=== PATIENT | male | born 1930 | race Caucasian/White ===

== ENCOUNTER 2017-08-31 06:38 | Inpatient (IN) | payer MEDICARE ==
[2017-08-30 12:02] LABS: BASOPHILS % 0.5 % (0.0-1.0); EOSINOPHILS # (AUTO) 0.2 (0.0-0.4); EOSINOPHILS % 2.4 % (0.0-6.0); HEMOGLOBIN 14.4 g/dL (14.0-18.0); LYMPHOCYTES # (AUTO) 1.4 (1.0-3.2); LYMPHOCYTES % 16.2 % (18.0-39.1); MEAN CORPUSCULAR HEMOGLOBIN 32.2 pg (28-32); MEAN CORPUSCULAR HGB CONC 34.3 g/dL (31-35); MONOCYTES % 11.6 % (4.4-11.3); PLATELET COUNT 190 x10e3/uL (140-360); RED BLOOD COUNT 4.47 x10e6/uL (4.3-5.7); RED CELL DISTRIBUTION WIDTH 13.6 % (11.7-14.4)
[2017-08-30 12:16] LABS: ANION GAP 12.8 mmol/L (8-16); BLOOD UREA NITROGEN 14 mg/dL (7-26); BUN/CREATININE RATIO 20 (6-25); CALCIUM 9.8 mg/dL (8.4-10.2); CARBON DIOXIDE 25 mmol/L (22-29); CHLORIDE 108 mmol/L (98-107); CREATININE, SERUM 0.69 mg/dL (0.72-1.25); EST GLOMERULAR FILTRATION RATE > 60 ML/MIN (60-); GLUCOSE 86 mg/dL (74-118); POTASSIUM 4.8 mmol/L (3.5-5.1); SODIUM 141 mmol/L (136-145)
--- NOTE | 2017-08-30 12:29 | Diagnostic Imaging Report ---
PROCEDURE: Frontal and lateral views of the chest. COMPARISON: None. INDICATIONS: PRE-OP. DENIES CHEST COMPLAINTS FINDINGS: Lines/tubes: None. Lungs: The lungs are well inflated and clear. There is no evidence of pneumonia or pulmonary edema. Pleura: There is no pleural effusion or pneumothorax. Heart and mediastinum: The heart and the mediastinum are normal. Aorta is calcified and tortuous. Bones: No acute bony abnormality. IMPRESSION: 1. No acute cardiopulmonary disease. Dictated by: Raj Sharma M.D. on 08/30/2017 at 12:32 Electronically approved by: Raj Sharma M.D. on 08/30/2017 at 12:32
[~2017-08-31] VITALS: Ht 180.3 cm; Wt 88.9 kg
[~2017-08-31 06:38] MED LIST: ASPIRIN81 MG; BELLADONNA/OPIUM 60 MG SUPP PR ONE; CEFTRIAXONE SOD 1 GM VIAL ONE; DIOVAN160 MG PO; FISH OIL 1,0001 EAC2; GENTAMICIN 80MG/NS 100 ML 100 ML IV ONE; HYDRALAZINE HCL10 MG PO; IOPAMIDOL 610MG/1ML 300 MG/ML VIAL IV ONE; LEVOTHYROXINE50 MCG PO
--- OUTSIDE RECORDS SUMMARY | 2017-08-31 06:40 | XMS REPORT | Summary of Care ---
Author Author NICK ARMSTRONG M.D. Organization Unknown Address Unknown Phone Unavailable Care Team Providers Care Canvas Goods Maker Name Role Phone NICK ARMSTRONG M.D. Unavailable Unavailable TREY KNAPP, HONORIO Cordova Unavailable Unavailable Unavailable Unavailable Functional Status Name Dates Details Functional status health issues are not documented Status: Name Dates Details Cognitive status health issues are not documented Status: Problems Name Dates Details Aortic regurgitation (424.1, I35.1) Status: Active Essential (primary) hypertension (401.9, I10) Status: Active Hyperlipidemia (272.4, E78.5) Status: Active Mitral regurgitation (424.0, I34.0) Status: Active Murmur (785.2, R01.1) Status: Active Paroxysmal atrial tachycardia (427.0, I47.1) Status: Active 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 Active Diovan 320 MG Oral Tablet TAKE 1 TABLET DAILY. * Refills: 0 Active Pravastatin Sodium 20 MG Oral Tablet TAKE 1 TABLET BY MOUTH DAILY * Quantity: 90 Refills: 0 NICK ARMSTRONG M.D. * Start : 18-Feb-2016 Active Doxycycline Hyclate 20 MG Oral Tablet TAKE 1 TABLET TWICE DAILY. * Refills: 0 Active Metoprolol Succinate ER 25 MG Oral Tablet Extended Release 24 Hour TAKE ONE TABLET BY MOUTH EVERY DAY AT BEDTIME * Quantity: 30 Refills: 0 * Start : 23-Mar-2013 Active Aspirin 81 MG TABS TAKE 1 TABLET DAILY. * Refills: 0 * Start : 03-Jul-2014 Active HydrALAZINE HCl - 25 MG Oral Tablet TAKE 1 TABLET 3 TIMES DAILY. take only if B/P<150 * Refills: 0 * Start : 24-Jun-2015 Active Allergies and Adverse Reactions Name Dates Details No Known Drug Allergies (Allergy) Status: Active Past Medical History Name Dates Details History of essential hypertension (V12.59, Z86.79) Status: Resolved History of hyperlipidemia (V12.29, Z86.39) Status: Resolved History of Hyperthyroidism (242.90, E05.90) Status: Resolved Procedures Procedure Dates Details History of Laminectomy Lumbar Completed History of Knee Replacement Completed Immunization Name Dates Details Immunizations not documented Family History Name Dates Details Family history of Parkinson Disease Comments: Family History Status: Active Family history of Cancer Comments: Family History Status: Active Social History Name Dates Details - Status: Name Dates Details Former smoker Vital Signs Date Test Result Details [id number] BP Systolic 150 mm[Hg] Status: Comments: Location: LUE; Position: Sitting BP Diastolic 80 mm[Hg] Status: Comments: Location: LUE; Position: Sitting Height 71 in Status: Weight 185.4 lb Status: Body Mass Index Calculated 25.86 kg/m2 Status: Body Surface Area Calculated 2.04 m2 Status: Heart Rate 61 /min Status: Comments: Location: L Radial; Quality: Normal Results Date Description Value Details Results not documented Plan of Care Name Dates Details Planned Observations Planned Goals not documented Planned Encounters Appointment; NICK ARMSTRONG M.D. On: 02-Sep-2017 15:10 Instructions Name Dates Details Instructions not documented Encounters Appointment; NICK ARMSTRONG M.D. Encounter Diagnosis: Problem not documented On: 18-Nov-2015 9:15 Appointment; NICK ARMSTRONG M.D. Encounter Diagnosis: Problem not documented On: 14-Jul-2017 14:30 Appointment; SE, ECHO Encounter Diagnosis: Problem not documented On: 19-Jul-2017 9:30 Appointment; SE, NUCLEAR Encounter Diagnosis: Problem not documented On: 20-Jul-2017 8:30
--- OUTSIDE RECORDS SUMMARY | 2017-08-31 06:40 | XMS REPORT ---
Author Author [facility] Address Unknown Phone Unavailable Care Team Providers Care Contract Negotiation Manager Name Role Phone MICHA HUANG Unavailable Unavailable Problems This patient has no known problems. Allergies, Adverse Reactions, Alerts This patient has no known allergies or adverse reactions. Medications This patient has no known medications. Results Test Description Test Time Test Comments Text Results Atomic Results Result Comments CHEST 2 VIEWS [place] [address] Patient Name: ILYA LEÓN MR #: [id number] : 1930 Age/Sex: 87/M Req # : [id number] Adm Physician: Ordered by: CHARLETTE PUGH MD Report # : [id number] Location: OR Room/Bed: Procedure: [id number] DX/CHEST 2 VIEWS Exam Date: 08/30/17 Exam Time : 1206 REPORT STATUS: Signed PROCEDURE: Frontal and lateral views of the chest. COMPARISON: None. INDICATIONS: PRE-OP. DENIES CHEST COMPLAINTS FINDINGS: Lines/tubes: None. Lungs: The lungs are well inflated and clear. There is no evidence of pneumonia or pulmonary edema. Pleura: There is no pleural effusion or pneumothorax. Heart and mediastinum: The heart and the mediastinum are normal. Aorta is calcified and tortuous. Bones: No acute bony abnormality. IMPRESSION: 1. No acute cardiopulmonary disease. Dictated by: Raj Luke M.D. on 08/30/2017 at 12:32 Electronically approved by: Raj Luke M.D. on 08/30/2017 at 12:32 Dictated By: RAJ LUKE MD 1232 Transcribed By: YANG on 08/30/17 1232 COPY TO: CHARLETTE PUGH MD CT ABDOMEN/PELVIS WOW [place] [address] Patient Name: ILYA LEÓN MR #: [id number] : 1930 Age/Sex: 86/M Req #: [id number] Adm Physician: Ordered by: MICHA HUANG MD Report #: [id number] Location: CT Room/Bed: Procedure: [id number] CT/CT ABDOMEN/PELVIS WOW Exam Date: 01/25/17 Exam Time: 1750 REPORT STATUS: Signed PROCEDURE: CT ABDOMEN T PELVIS W/WO CONTRAST TECHNIQUE: The abdomen and pelvis were scanned utilizing a multidetector helical scanner from the diaphragm to the lesser trochanter before and after the IV administration of 100 cc of Isovue 370 and the oral administration of water. Coronal and sagittal multiplanar reformations were obtained. COMPARISON: None. INDICATIONS : Hematuria. FINDINGS: LOWER THORAX: Normal. HEPATOBILIARY: No focal hepatic lesions. No biliary ductal dilatation. Normal gallbladder. SPLEEN: No splenomegaly. PANCREAS: No focal masses or ductal dilatation. ADRENALS: No adrenal nodules. KIDNEYS/URETERS: No filling defect is visualized. No hydroureter. No obstructing calculi. No solid mass. No perinephric soft tissue inflammatory changes. PELVIC ORGANS/BLADDER: Normal urinary bladder. Enlarged lobular prostate. PERITONEUM / RETROPERITONEUM: No free air or fluid. LYMPH NODES: No lymphadenopathy. VESSELS: Aortoiliac atherosclerotic calcifications. GI TRACT: No distention or wall thickening. Normal appendix. Moderate amount of retained feces limits intraluminal evaluation of the colon. No air-fluid levels. BONES AND SOFT TISSUES: Degenerative changes of the lumbar spine. IMPRESSION: No acute abnormality of the abdomen and pelvis. Dictated by : Kesha Vasquez M.D. on 01/25/2017 at 18:50 Electronically approved by: eKsha Vasquez M.D. on 01/25/2017 at 18:50 Dictated By: KESHA VASQUEZ MD 49 Transcribed By: YANG on 01/25/171849 COPY TO: MICHA HUANG MD
[2017-08-31] MEDS ORDERED: IOPAMIDOL 610MG/1ML 300 MG/ML VIAL IV ONE (07:47)
[2017-08-31] MEDS ORDERED: FENTANYL CITRATE/PF 100MCG/2 ML INJ ONE ×2 (13:33→18:26)
[2017-08-31 15:23] VITALS: BP 142/73
[2017-08-31] MEDS ORDERED: HYDROCODONE/APAP 10MG-325MG TAB PO PRN (16:30)
[2017-08-31 16:44] VITALS: BP 142/73
[2017-08-31] MEDS ORDERED: ACETAMINOPHEN 1000 MG/100 ML IV ONE (18:33)
[2017-08-31] MEDS ORDERED: KETOROLAC TROMETHAMINE 30 MG/ML VIAL ONE (18:33)
[2017-08-31] MEDS ORDERED: PROPOFOL IV EMULSION 10 MG/ML 20 ML VIAL ONE (18:33)
[2017-08-31] MEDS ORDERED: LIDOCAINE HCL 2% LOCAL INJ 5 ML SDV VIAL INJ ONE (18:33)
[2017-08-31] MEDS ORDERED: ONDANSETRON HCL INJ 2 MG/ML VIAL ONE (18:33)
[2017-08-31] MEDS ORDERED: EPHEDRINE SULFATE INJ 50 MG/10 ML SYR ONE (18:33)
[2017-08-31] MEDS ORDERED: DEXAMETHASONE SOD PHOS INJ 4 MG/ML VIAL ONE (18:33)
[2017-08-31] MEDS ORDERED: KETOROLAC TROMETHAMINE 30 MG/ML VIAL IV PRN (21:30)
[2017-08-31] MEDS: HYDRALAZINE HCL 25 MG TAB PO SCH (21:51)
[2017-08-31 22:00] VITALS: BP 129/72
[2017-08-31 23:10] VITALS: BP_SYST 129; BP_SYST 150; BP_DIAS 68; BP_DIAS 72
[2017-09-01] VITALS (9 sets, daily range): BP systolic 98–120; BP diastolic 52–69
[2017-09-01] MEDS: LEVOTHYROXINE SODIUM 25 MCG TABLET PO SCH (05:05)
[2017-09-01 06:12] LABS: BASOPHILS # (AUTO) 0.1 (0.0-0.1); BASOPHILS % 0.4 % (0.0-1.0); EOSINOPHILS # (AUTO) 0.1 (0.0-0.4); EOSINOPHILS % 0.9 % (0.0-6.0); HEMOGLOBIN 11.5 g/dL (14.0-18.0); LYMPHOCYTES # (AUTO) 0.8 (1.0-3.2); LYMPHOCYTES % 4.6 % (18.0-39.1); MEAN CORPUSCULAR HEMOGLOBIN 32.4 pg (28-32); MEAN CORPUSCULAR HGB CONC 33.8 g/dL (31-35); MEAN CORPUSCULAR VOLUME 95.8 fL (81-99); MONOCYTES # (AUTO) 1.4 (0.2-0.8); MONOCYTES % 8.7 % (4.4-11.3); NEUTROPHILS # (AUTO) 13.9 (2.1-6.9); NEUTROPHILS % 84.8 % (38.7-80.0); PLATELET COUNT 175 x10e3/uL (140-360); RED BLOOD COUNT 3.55 x10e6/uL (4.3-5.7); RED CELL DISTRIBUTION WIDTH 13.7 % (11.7-14.4)
[2017-09-01] MEDS ORDERED: ACETAMINOPHEN/CODEINE 300MG - 30MG TAB PO PRN (06:15)
[2017-09-01 06:36] LABS: ANION GAP 15.1 mmol/L (8-16); CALCIUM 8.9 mg/dL (8.4-10.2); CREATININE, SERUM 2.17 mg/dL (0.72-1.25); POTASSIUM 5.1 mmol/L (3.5-5.1)
[2017-09-01] MEDS: HYDRALAZINE HCL 25 MG TAB PO SCH ×2 (08:27→21:10)
[2017-09-01] MEDS ORDERED: VALSARTAN 160 MG TAB PO SCH (09:00)
[2017-09-01] MEDS ORDERED: LEVOFLOXACIN 250 MG TAB PO SCH (09:00)
[2017-09-01] MEDS ORDERED: CEFTRIAXONE SOD 1 GM/NS 50 ML 50 ML IV SCH (09:00)
[2017-09-01] MEDS ORDERED: LEVOTHYROXINE SODIUM 50 MCG TAB PO SCH (09:00)
[2017-09-01] MEDS ORDERED: HYDRALAZINE HCL 10 MG TAB PO SCH (09:00)
[2017-09-01] MEDS: SODIUM CHLORIDE 0.9% 1000ML 1,000 ML IV SCH ×2 (10:34→20:08)
[2017-09-01] MEDS: CEFTRIAXONE SOD 1 GM VIAL IV SCH (10:34)
[2017-09-02] VITALS (8 sets, daily range): BP systolic 109–143; BP diastolic 55–82
[2017-09-02] MEDS: SODIUM CHLORIDE 0.9% 1000ML 1,000 ML IV SCH ×2 (05:01→16:01)
[2017-09-02] MEDS: LEVOTHYROXINE SODIUM 25 MCG TABLET PO SCH (05:35)
[2017-09-02 07:08] LABS: BASOPHILS % 0.3 % (0.0-1.0); EOSINOPHILS # (AUTO) 0.6 (0.0-0.4); EOSINOPHILS % 5.6 % (0.0-6.0); HEMOGLOBIN 10.1 g/dL (14.0-18.0); LYMPHOCYTES # (AUTO) 0.6 (1.0-3.2); LYMPHOCYTES % 5.3 % (18.0-39.1); MEAN CORPUSCULAR HGB CONC 34.8 g/dL (31-35); MEAN CORPUSCULAR VOLUME 94.8 fL (81-99); MONOCYTES # (AUTO) 1.3 (0.2-0.8); MONOCYTES % 11.9 % (4.4-11.3); NEUTROPHILS # (AUTO) 8.2 (2.1-6.9); NEUTROPHILS % 76.4 % (38.7-80.0); PLATELET COUNT 128 x10e3/uL (140-360); RED BLOOD COUNT 3.06 x10e6/uL (4.3-5.7); RED CELL DISTRIBUTION WIDTH 13.7 % (11.7-14.4)
[2017-09-02 07:38] LABS: ANION GAP 13.9 mmol/L (8-16); CALCIUM 8.6 mg/dL (8.4-10.2); CREATININE, SERUM 2.71 mg/dL (0.72-1.25); POTASSIUM 4.9 mmol/L (3.5-5.1)
[2017-09-02] MEDS ORDERED: SODIUM CHLORIDE 0.9% 500ML 500 ML ONE (08:18)
[2017-09-02] MEDS: HYDRALAZINE HCL 25 MG TAB PO SCH ×2 (09:44→21:40)
[2017-09-02] MEDS: CEFTRIAXONE SOD 1 GM VIAL IV SCH (09:44)
--- NOTE | 2017-09-02 10:01 | Diagnostic Imaging Report ---
PROCEDURE:CT PELVIS WITHOUT AND WITH CONTRAST COMPARISON:[facility], CT, CT ABDOMEN/PELVIS WOW, 01/25/2017, 17:41. INDICATIONS:PRESLEY PLACEMENT; LOWER ABDOMINAL/PELVIC DISTENTION TECHNIQUE:Axial CT images of the pelvis were created without and following contrast material administration into the bladder. CONTRAST:Isovue-370 diluted in water instilled into the Presley catheter. DLP: 1177.94 mGy-cm FINDINGS: PELVIC NODES:None readily apparent PELVIC ORGANS:There is a Presley catheter with the balloon inflated within the prostatic urethra. The prostate is enlarged. Presley catheter does not extend into the bladder. Bladder has air and high density blood within it. The bladder is distended. The indwelling Presley catheter was removed by the Urologist. A new Presley catheter was placed and the balloon inflated. The balloon of the Presley is now present within the bladder to the right side of the bladder adjacent to the large bladder hematoma. Contrast was injected through the Presley catheter. This confirms a large bladder hematoma which has a masslike effect with contrast outlining the hematoma. Contrast does extend into the right ureter to the level of the renal pelvis. Some contrast intravasation is along the Presley within the prostatic urethra related to the recent surgery. BONES:Degenerative changes of the spine. OTHER:The appendix is normal. Atherosclerotic vascular calcification. CONCLUSION:Presley catheter and the bladder as described above. Zack Moser D.O. Dictated by: Zack Moser D.O. on 09/02/2017 at 10:03 Electronically approved by: Zack Moser D.O. on 09/02/2017 at 10:03
[2017-09-03] VITALS (8 sets, daily range): BP systolic 115–135; BP diastolic 55–91
[2017-09-03] MEDS: SODIUM CHLORIDE 0.9% 1000ML 1,000 ML IV SCH ×3 (00:27→20:15)
[2017-09-03] MEDS: LEVOTHYROXINE SODIUM 25 MCG TABLET PO SCH (05:36)
[2017-09-03 06:54] LABS: ANION GAP 11.8 mmol/L (8-16); BLOOD UREA NITROGEN 19 mg/dL (7-26); BUN/CREATININE RATIO 23 (6-25); CALCIUM 8.5 mg/dL (8.4-10.2); CARBON DIOXIDE 20 mmol/L (22-29); CHLORIDE 112 mmol/L (98-107); CREATININE, SERUM 0.84 mg/dL (0.72-1.25); EST GLOMERULAR FILTRATION RATE > 60 ML/MIN (60-); GLUCOSE 85 mg/dL (74-118); POTASSIUM 4.8 mmol/L (3.5-5.1); SODIUM 139 mmol/L (136-145)
[2017-09-03] MEDS: CEFTRIAXONE SOD 1 GM VIAL IV SCH (08:41)
[2017-09-03] MEDS: HYDRALAZINE HCL 25 MG TAB PO SCH ×2 (08:41→20:16)
[2017-09-03] MEDS ORDERED: MAGNESIUM HYDROXIDE 30 ML UDC PO PRN (09:00)
[2017-09-03] MEDS ORDERED: BISACODYL 10 MG SUPP PR PRN (09:00)
[2017-09-03] MEDS: SENNOSIDES 8.6 MG TAB PO SCH ×3 (09:00→16:34)
[2017-09-04] VITALS (8 sets, daily range): BP systolic 117–170; BP diastolic 56–72
[2017-09-04] MEDS: LEVOTHYROXINE SODIUM 25 MCG TABLET PO SCH (05:31)
[2017-09-04 06:23] LABS: BASOPHILS % 0.5 % (0.0-1.0); EOSINOPHILS # (AUTO) 0.7 (0.0-0.4); EOSINOPHILS % 9.6 % (0.0-6.0); HEMATOCRIT 26.6 % (38.2-49.6); HEMOGLOBIN 9.2 g/dL (14.0-18.0); LYMPHOCYTES # (AUTO) 0.8 (1.0-3.2); LYMPHOCYTES % 10.5 % (18.0-39.1); MEAN CORPUSCULAR HEMOGLOBIN 32.5 pg (28-32); MEAN CORPUSCULAR HGB CONC 34.6 g/dL (31-35); MONOCYTES % 12.3 % (4.4-11.3); NEUTROPHILS # (AUTO) 5.1 (2.1-6.9); NEUTROPHILS % 66.3 % (38.7-80.0); PLATELET COUNT 146 x10e3/uL (140-360); RED BLOOD COUNT 2.83 x10e6/uL (4.3-5.7); RED CELL DISTRIBUTION WIDTH 13.6 % (11.7-14.4)
[2017-09-04 06:42] LABS: ANION GAP 8.9 mmol/L (8-16); BLOOD UREA NITROGEN 10 mg/dL (7-26); BUN/CREATININE RATIO 15 (6-25); CALCIUM 8.7 mg/dL (8.4-10.2); CARBON DIOXIDE 21 mmol/L (22-29); CHLORIDE 108 mmol/L (98-107); CREATININE, SERUM 0.67 mg/dL (0.72-1.25); EST GLOMERULAR FILTRATION RATE > 60 ML/MIN (60-); GLUCOSE 98 mg/dL (74-118); POTASSIUM 3.9 mmol/L (3.5-5.1); SODIUM 134 mmol/L (136-145)
[2017-09-04] MEDS: SODIUM CHLORIDE 0.9% 1000ML 1,000 ML IV SCH (07:00)
[2017-09-04] MEDS: SENNOSIDES 8.6 MG TAB PO SCH ×2 (08:14→17:19)
[2017-09-04] MEDS: HYDRALAZINE HCL 25 MG TAB PO SCH (08:14)
[2017-09-04] MEDS: CEFTRIAXONE SOD 1 GM VIAL IV SCH (08:14)
[2017-09-04] MEDS: IRON-VITAMIN-MINERAL CAPSULE PO SCH ×2 (11:39→17:19)
[2017-09-05] VITALS: BP_SYST 148; BP_SYST 154; BP_DIAS 72; BP_DIAS 79
[2017-09-05] MEDS: HYDRALAZINE HCL 25 MG TAB PO SCH ×3 (00:54→20:34)
[2017-09-05] MEDS: LEVOTHYROXINE SODIUM 25 MCG TABLET PO SCH (05:55)
[2017-09-05 06:31] LABS: BASOPHILS % 0.5 % (0.0-1.0); EOSINOPHILS # (AUTO) 0.7 (0.0-0.4); EOSINOPHILS % 10.3 % (0.0-6.0); HEMATOCRIT 26.4 % (38.2-49.6); LYMPHOCYTES % 15.3 % (18.0-39.1); MEAN CORPUSCULAR HGB CONC 34.1 g/dL (31-35); MONOCYTES # (AUTO) 0.7 (0.2-0.8); MONOCYTES % 11.2 % (4.4-11.3); NEUTROPHILS # (AUTO) 4.1 (2.1-6.9); NEUTROPHILS % 61.9 % (38.7-80.0); PLATELET COUNT 164 x10e3/uL (140-360); RED BLOOD COUNT 2.81 x10e6/uL (4.3-5.7); RED CELL DISTRIBUTION WIDTH 13.3 % (11.7-14.4)
[2017-09-05 07:10] LABS: ANION GAP 9.9 mmol/L (8-16); BLOOD UREA NITROGEN 9 mg/dL (7-26); BUN/CREATININE RATIO 13 (6-25); CALCIUM 8.8 mg/dL (8.4-10.2); CARBON DIOXIDE 22 mmol/L (22-29); CHLORIDE 109 mmol/L (98-107); CREATININE, SERUM 0.67 mg/dL (0.72-1.25); EST GLOMERULAR FILTRATION RATE > 60 ML/MIN (60-); GLUCOSE 92 mg/dL (74-118); POTASSIUM 3.9 mmol/L (3.5-5.1); SODIUM 137 mmol/L (136-145)
[2017-09-05] MEDS: SENNOSIDES 8.6 MG TAB PO SCH ×2 (08:20→16:19)
[2017-09-05] MEDS: IRON-VITAMIN-MINERAL CAPSULE PO SCH ×2 (08:20→16:19)
[2017-09-05] MEDS: CEFTRIAXONE SOD 1 GM VIAL IV SCH (08:20)
[2017-09-05 08:21] VITALS: BP 144/88
[2017-09-05 13:16] VITALS: BP 160/82
[2017-09-05 16:46] VITALS: BP 154/76
[2017-09-05 20:00] VITALS: BP 133/65
[2017-09-05 20:05] VITALS: BP 133/65
[2017-09-06] VITALS (7 sets, daily range): BP systolic 108–156; BP diastolic 61–79
[2017-09-06] MEDS: LEVOTHYROXINE SODIUM 25 MCG TABLET PO SCH (06:23)
[2017-09-06] MEDS: HYDRALAZINE HCL 25 MG TAB PO SCH ×2 (08:07→20:10)
[2017-09-06] MEDS: IRON-VITAMIN-MINERAL CAPSULE PO SCH ×2 (08:07→16:55)
[2017-09-06] MEDS: SENNOSIDES 8.6 MG TAB PO SCH ×2 (09:32→16:55)
[2017-09-06] MEDS: CEFTRIAXONE SOD 1 GM VIAL IV SCH (10:30)
[2017-09-07] VITALS (7 sets, daily range): BP systolic 116–140; BP diastolic 61–80
[2017-09-07] MEDS: LEVOTHYROXINE SODIUM 25 MCG TABLET PO SCH (06:03)
[2017-09-07 06:55] LABS: BASOPHILS # (AUTO) 0.1 (0.0-0.1); BASOPHILS % 0.7 % (0.0-1.0); EOSINOPHILS # (AUTO) 0.9 (0.0-0.4); EOSINOPHILS % 10.3 % (0.0-6.0); HEMATOCRIT 27.2 % (38.2-49.6); HEMOGLOBIN 9.4 g/dL (14.0-18.0); LYMPHOCYTES # (AUTO) 1.2 (1.0-3.2); LYMPHOCYTES % 13.9 % (18.0-39.1); MEAN CORPUSCULAR HGB CONC 34.6 g/dL (31-35); MEAN CORPUSCULAR VOLUME 92.5 fL (81-99); NEUTROPHILS # (AUTO) 5.4 (2.1-6.9); NEUTROPHILS % 62.8 % (38.7-80.0); PLATELET COUNT 203 x10e3/uL (140-360); RED BLOOD COUNT 2.94 x10e6/uL (4.3-5.7)
[2017-09-07 07:29] LABS: BLOOD UREA NITROGEN 11 mg/dL (7-26); BUN/CREATININE RATIO 16 (6-25); CARBON DIOXIDE 23 mmol/L (22-29); CHLORIDE 109 mmol/L (98-107); CREATININE, SERUM 0.68 mg/dL (0.72-1.25); EST GLOMERULAR FILTRATION RATE > 60 ML/MIN (60-); GLUCOSE 90 mg/dL (74-118); SODIUM 138 mmol/L (136-145)
[2017-09-07] MEDS: CEFTRIAXONE SOD 1 GM VIAL IV SCH (07:55)
[2017-09-07] MEDS: OMEGA 3 POLYUNSAT FATTY ACIDS 1000 MG SOFTGEL PO SCH (07:55)
[2017-09-07] MEDS: SENNOSIDES 8.6 MG TAB PO SCH ×2 (07:55→17:02)
[2017-09-07] MEDS: HYDRALAZINE HCL 25 MG TAB PO SCH ×2 (07:55→21:00)
[2017-09-07] MEDS: IRON-VITAMIN-MINERAL CAPSULE PO SCH ×2 (07:55→17:02)
[2017-09-07] MEDS ORDERED: ASPIRIN 81 MG CHEW TAB PO SCH (09:00)
[2017-09-08] VITALS (7 sets, daily range): BP systolic 97–168; BP diastolic 56–79
[2017-09-08] MEDS: LEVOTHYROXINE SODIUM 25 MCG TABLET PO SCH (06:00)
[2017-09-08 06:57] LABS: BASOPHILS # (AUTO) 0.1 (0.0-0.1); BASOPHILS % 0.7 % (0.0-1.0); EOSINOPHILS # (AUTO) 0.9 (0.0-0.4); EOSINOPHILS % 9.6 % (0.0-6.0); HEMATOCRIT 28.3 % (38.2-49.6); HEMOGLOBIN 9.8 g/dL (14.0-18.0); LYMPHOCYTES # (AUTO) 1.3 (1.0-3.2); LYMPHOCYTES % 13.1 % (18.0-39.1); MEAN CORPUSCULAR HEMOGLOBIN 32.2 pg (28-32); MEAN CORPUSCULAR HGB CONC 34.6 g/dL (31-35); MEAN CORPUSCULAR VOLUME 93.1 fL (81-99); MONOCYTES # (AUTO) 1.1 (0.2-0.8); MONOCYTES % 11.7 % (4.4-11.3); NEUTROPHILS # (AUTO) 6.1 (2.1-6.9); NEUTROPHILS % 62.8 % (38.7-80.0); PLATELET COUNT 240 x10e3/uL (140-360); RED BLOOD COUNT 3.04 x10e6/uL (4.3-5.7); RED CELL DISTRIBUTION WIDTH 13.2 % (11.7-14.4)
[2017-09-08 07:23] LABS: ANION GAP 10.4 mmol/L (8-16); BLOOD UREA NITROGEN 12 mg/dL (7-26); BUN/CREATININE RATIO 16 (6-25); CALCIUM 9.2 mg/dL (8.4-10.2); CARBON DIOXIDE 24 mmol/L (22-29); CHLORIDE 106 mmol/L (98-107); CREATININE, SERUM 0.73 mg/dL (0.72-1.25); EST GLOMERULAR FILTRATION RATE > 60 ML/MIN (60-); GLUCOSE 94 mg/dL (74-118); POTASSIUM 4.4 mmol/L (3.5-5.1); SODIUM 136 mmol/L (136-145)
[2017-09-08] MEDS: CEFTRIAXONE SOD 1 GM VIAL IV SCH (09:00)
[2017-09-08] MEDS: HYDRALAZINE HCL 25 MG TAB PO SCH ×2 (09:00→21:00)
[2017-09-08] MEDS: SENNOSIDES 8.6 MG TAB PO SCH ×2 (09:00→16:29)
[2017-09-08 09:40] LABS: EOSINOPHILS % (MANUAL) 12 % (0-7); LYMPHOCYTES % (MANUAL) 13 % (19-48); MONOCYTES % (MANUAL) 7 % (3.4-9.0); NEUTROPHILS % (MANUAL) 65 % (40-74)
[2017-09-08 09:41] LABS: HYPOCHROMASIA SLIGHT; PLATELET ESTIMATE ADEQUATE; PLATELET MORPHOLOGY COMMENT NORMAL; RBC MORPHOLOGY COMMENT NORMAL
[2017-09-08] MEDS ORDERED: BELLADONNA/OPIUM 60 MG SUPP PR ONE (10:20)
[2017-09-08] MEDS ORDERED: SEVOFLURANE INHAL SOLN 250 ML PEN BTL ONE (14:46)
[2017-09-08] MEDS ORDERED: PROPOFOL IV EMULSION 10 MG/ML 20 ML VIAL ONE (14:46)
[2017-09-08] MEDS ORDERED: LIDOCAINE HCL 2% LOCAL INJ 5 ML SDV VIAL INJ ONE (14:46)
[2017-09-08] MEDS ORDERED: ONDANSETRON HCL INJ 2 MG/ML VIAL ONE (14:46)
[2017-09-08] MEDS ORDERED: DEXAMETHASONE SOD PHOS INJ 4 MG/ML VIAL ONE (14:46)
[2017-09-08] MEDS ORDERED: FENTANYL CITRATE/PF 100MCG/2 ML INJ ONE (19:41)
[2017-09-08] MEDS: IRON-VITAMIN-MINERAL CAPSULE PO SCH (19:55)
[2017-09-08] MEDS: OMEGA 3 POLYUNSAT FATTY ACIDS 1000 MG SOFTGEL PO SCH (19:55)
[2017-09-09] VITALS (8 sets, daily range): BP systolic 104–118; BP diastolic 56–62
[2017-09-09 05:25] LABS: BASOPHILS # (AUTO) 0.1 (0.0-0.1); BASOPHILS % 0.3 % (0.0-1.0); EOSINOPHILS % 6.9 % (0.0-6.0); HEMATOCRIT 27.2 % (38.2-49.6); HEMOGLOBIN 9.2 g/dL (14.0-18.0); LYMPHOCYTES # (AUTO) 1.4 (1.0-3.2); LYMPHOCYTES % 9.3 % (18.0-39.1); MEAN CORPUSCULAR HEMOGLOBIN 31.8 pg (28-32); MEAN CORPUSCULAR HGB CONC 33.8 g/dL (31-35); MEAN CORPUSCULAR VOLUME 94.1 fL (81-99); MONOCYTES # (AUTO) 1.5 (0.2-0.8); MONOCYTES % 10.2 % (4.4-11.3); NEUTROPHILS # (AUTO) 10.3 (2.1-6.9); NEUTROPHILS % 71.6 % (38.7-80.0); PLATELET COUNT 268 x10e3/uL (140-360); RED BLOOD COUNT 2.89 x10e6/uL (4.3-5.7); RED CELL DISTRIBUTION WIDTH 13.4 % (11.7-14.4)
[2017-09-09 05:37] LABS: ANION GAP 11.4 mmol/L (8-16); BUN/CREATININE RATIO 21 (6-25); CALCIUM 8.8 mg/dL (8.4-10.2); CARBON DIOXIDE 22 mmol/L (22-29); CHLORIDE 108 mmol/L (98-107); CREATININE, SERUM 0.95 mg/dL (0.72-1.25); EST GLOMERULAR FILTRATION RATE > 60 ML/MIN (60-); GLUCOSE 94 mg/dL (74-118); POTASSIUM 4.4 mmol/L (3.5-5.1); SODIUM 137 mmol/L (136-145)
[2017-09-09 05:41] LABS: BLOOD UREA NITROGEN 20 mg/dL (7-26)
[2017-09-09] MEDS: LEVOTHYROXINE SODIUM 25 MCG TABLET PO SCH (07:07)
[2017-09-09] MEDS: HYDRALAZINE HCL 25 MG TAB PO SCH ×2 (09:00→20:21)
[2017-09-09] MEDS: SENNOSIDES 8.6 MG TAB PO SCH ×2 (09:01→16:04)
[2017-09-10] VITALS: BP 137/71
[2017-09-10] MEDS: HYDRALAZINE HCL 25 MG TAB PO SCH (00:47)
[2017-09-10 04:00] VITALS: BP 134/70
[2017-09-10] MEDS: LEVOTHYROXINE SODIUM 25 MCG TABLET PO SCH (05:51)
[2017-09-10] MEDS ORDERED: LEVAQUIN250 MG PO (09:42)
[2017-09-10] MEDS ORDERED: TYLENOL WITH C1 EACH PO (09:42)
--- NOTE | 2017-09-10 21:41 | Discharge Summary ---
PCP: Dr. Toi Scott UROLOGIST: Dr. Willy Frazier FINAL DIAGNOSES 1. Status post transurethral resection of prostate secondary to enlarged prostate. 2. Urinary retention post transurethral resection of prostate. 3. Persistent hematuria with acute blood-loss anemia, status post re-cystoscopy with hematuria area of the urinary bladder treatment. SUMMARY: This is an 87-year-old male, who has enlarged prostate, status post TURP. Patient was unable to urinate after Presley catheter removed. Presley catheter replaced and subsequently, persistent clotting. The patient was kept in the hospital for continuous irrigation of the urinary bladder. The bleeding of the urinary bladder did not stop. Matter of fact, he was having persistent clotting. It did fade. His hemoglobin dropped down to 9, hematocrit of 27. Patient subsequently went back into another procedure, cystoscopy done by Dr. Willy Frazier. Procedure was done on September 08. There was clot retention and persistent hematuria. She, subsequently, had a cystoscopy, evacuation of the clot, and the bleeding subsequently stopped. The clot was treated. The patient is now stable. He does have some clear hematuria. He is stable. Hemoglobin/hematocrit today are 9.2 and 27.2. The patient is, otherwise, stable. He will go home today. He will take his Presley out per Dr. Frazier's recommendation. DISCHARGE MEDICATION: Including home medication except for aspirin. He will take Tylenol No. 3 for pain and Levaquin 250 mg daily for 7 days. Prescription was given by Dr. Frazier. The patient stable, discharged home today, follow up as an outpatient with Dr. Frazier as instructed, and with his family physician Dr. Scott for the routine medical visit post hospital stay visit. ACTIVITY: As tolerated. PRESLEY CATHETER: To go home. DIET: A 2-g sodium. FOLLOWUP: As needed. Job#: [id number] cc:DR TOI SCOTT
--- NOTE | 2017-10-25 03:22 | Operative Report ---
DATE OF PROCEDURE: August 31, 2017 PREOPERATIVE DIAGNOSES: 1. Hydronephrosis. 2. Hematuria. 3. Obstructive benign prostatic hypertrophy. POSTOPERATIVE DIAGNOSES: 1. Hydronephrosis. 2. Hematuria. 3. Obstructive benign prostatic hypertrophy. 4. Bladder stone. OPERATIONS PERFORMED: 1. Cystourethroscopy with cystolitholapaxy (separate procedure performed for the bladder stone). 2. Cystourethroscopy with bilateral ureteral catheterization and retrograde ureteropyelography (separate procedure performed for the hydronephrosis and hematuria). 3. Interpretation of retrograde ureteropyelography. 4. Cystourethroscopy with transurethral resection of the prostate utilizing the plasma button electrode as a staged procedure (separate procedure performed for the obstructive benign prostatic hypertrophy). ANESTHESIA: General. COMPLICATIONS: None. CLINICAL SUMMARY: Jeevan Mcpherson is an 87-year-old man with long-standing obstructive BPH. He is brought to the operating room today for the above procedures. He is aware of the risks of bleeding, infection, injury to adjacent structures, need for additional procedures, and elected to proceed. OPERATIVE PROCEDURE IN DETAIL: Informed consent was verified. Jeevan Mcpherson was properly identified, taken to the operating room, and placed on the cystoscopy table in supine position. Anesthesia was uneventfully begun. Patient was then carefully and gently repositioned in dorsal lithotomy position with all pressure points well padded. His genitalia were prepared and draped in usual sterile fashion. The 22.5-Romanian cystoscope sheath with the visual obturator in place was atraumatically inserted in patient's urethra. It was guided down the unremarkable distal urethra, through the normal sphincteric region, through the prostate bed, which was significant for visually obstructing BPH with stone embedded into the mucosa of the left lateral lobe. We entered the patient's bladder where there was grade 3 to 4 trabeculations with diverticular formation throughout and bladder stone was discovered. We crushed the bladder stone with cold cup biopsy forceps and extracted it. Ureteral catheter was used to cannulate each ureter, and retrograde ureteral pyelograms were performed. Interpretation of retrograde ureteropyelography: Contrast was instilled in retrograde fashion bilaterally. There were no tumors, there were no stones, there were no diverticula of the upper tracts. There was severe ureteral tortuosity that was noted and bilateral hydronephrosis. We could see contrast refluxing, nevertheless unobstructed drainage was observed fluoroscopically bilaterally. We introduced the resectoscope sheath. We utilized the plasma button electrode to vaporize the patient's prostate from the bladder neck to, but never past the verumontanum. We vaporized until we obtained a wide open prostatic channel. The patient's prostate was extremely large. We released multiple stones from within the prostate in the process. We proceeded with evacuating all debris including from the periureteral diverticulum on the right hand side. This diverticulum did displace the right ureteral orifice somewhat. We verified good hemostasis. The resectoscope was withdrawn. A Saini catheter was placed. It was irrigated to and fro. It was placed on continuous bladder irrigation. A belladonna and opium suppository was placed revealing a larger than 50 g prostate that is smooth, non-fluctuant, and without any nodules. Patient was then uneventfully reversed from anesthesia and taken to recovery room in stable condition. There were no complications to the procedure. He tolerated the procedure well. Will proceed with postoperative care and diligent urological followup. Job#: [id number]
--- NOTE | 2017-10-25 03:40 | Operative Report ---
DATE OF PROCEDURE: September 08, 2017 PREOPERATIVE DIAGNOSIS: Obstructive BPH. POSTOPERATIVE DIAGNOSIS: Obstructive BPH. OPERATION PERFORMED: Staged cystourethroscopy with transurethral resection of the prostate utilizing the VaporTrode electrode. ANESTHESIA: General. COMPLICATIONS: None. CLINICAL SUMMARY: Jeevan Mcpherson is an 87-year-old man who underwent transurethral resection of the prostate with the plasma button electrode 8 days prior. The patient has had persistent gross hematuria. The patient had a postoperative catheter exchange by the nursing staff which resulted in the Saini catheter balloon being inflated in the patient's prostatic urethra. This resulted in persistent bleeding even following replacement of the patient's Saini catheter to the appropriate position. Bilateral vesicoureteric reflux was noted upon cystogram. The patient has had persistent bleeding and is brought for revision of his transurethral resection of the prostate. He is aware of the risks of bleeding, infection, injury to adjacent structures, need for additional procedures, and elected to proceed. OPERATIVE PROCEDURE IN DETAIL: Informed consent was verified. Jeevan Mcpherson was properly identified, taken to the operating room, placed on the cystoscopy table in supine position. Anesthesia was uneventfully begun. The patient was then carefully and gently re-positioned in the dorsal lithotomy position with all pressure points well padded. His genitalia were prepared and draped in usual sterile fashion. The 22.5-Lithuanian cystoscope sheath with the visual obturator in place was atraumatically inserted in the patient's urethra. It was guided down the normal unremarkable distal urethra through a normal sphincteric region to the prostate bed. The prostate bed exhibited no active bleeding at this time, but there was a significant amount of raw surface area as one would expect following transurethral resection only 8 days prior. Panendoscopy revealed no suspicious mucosal lesions, no tumors. We noted a diverticulum on the right side of the bladder with displacement of the right ureteral orifice. No suspicious lesions were identified. Following atraumatic placement of the resectoscope, we utilized the vaporizing grooved electrode. We vaporized the entire surface of the prostatic urethra that we had previously resected. We did this to both get rid of prostatic tissue that appeared to be residual and was caving into the cavity as well as achieve better hemostasis than the plasma button electrode allowed us. The utilization of this monopolar electrode allowed better coagulation of the prostatic bed. The entire prostatic bed was coagulated thoroughly with the VaporTrode electrode. We verified hemostasis. We removed the resectoscope. We placed a Saini catheter in place. It was irrigated to and fro. It was placed on continuous bladder irrigation. The patient was then uneventfully reversed from anesthesia and taken to the recovery room in stable condition. There were no complications of the procedure. Patient tolerated the procedure well. Estimated blood loss was minimal. Will proceed with carefully monitoring the patient postoperatively and of course on a long-term basis. Job#: [id number]
== END 2017-09-10 10:29 | disposition home or self-care (01) | DRG 713 ==
LOC: OR 06:38 → IMCU 14:31 → OBSVTOIN 09-01 08:54 → MED/SURG 09-01 13:23
PROVIDERS: ADMIT Internal Medicine; ATTEND Internal Medicine
PROC: 0TCB8ZZ Extirpation of Matter from Bladder, Via Natural or Artificial Opening Endoscopic (ICD-10-PCS; 2017-08-31)
PROC: 0VB08ZZ Excision of Prostate, Via Natural or Artificial Opening Endoscopic (ICD-10-PCS; principal; 2017-08-31 07:19)
PROC: 0V508ZZ Destruction of Prostate, Via Natural or Artificial Opening Endoscopic (ICD-10-PCS; 2017-09-08)
DX: N40.1 Benign prostatic hyperplasia with lower urinary tract symptoms (principal); N17.0 Acute kidney failure with tubular necrosis; D62 Acute posthemorrhagic anemia; N13.30 Unspecified hydronephrosis; N13.8 Other obstructive and reflux uropathy; N21.0 Calculus in bladder; R33.8 Other retention of urine; R31.0 Gross hematuria; E03.9 Hypothyroidism, unspecified; I12.9 Hypertensive chronic kidney disease with stage 1 through stage 4 chronic kidney disease, or unspecified chronic kidney disease; N18.9 Chronic kidney disease, unspecified; N32.89 Other specified disorders of bladder; K59.00 Constipation, unspecified; R29.2 Abnormal reflex; Z87.891 Personal history of nicotine dependence; Z96.651 Presence of right artificial knee joint; N99.0 Postprocedural (acute) (chronic) kidney failure
CPT/HCPCS: 36415; 71046; 72194; 74420; 80048; 85025; 86850; 86900; 88300; 93005; 96365; G0378; J0696; J1100; J1580; J1885; J2001; J2405; J7030; J7040